=== PATIENT | male | born 2000 | race Asian ===

== ENCOUNTER 2018-09-05 05:43 | Day surgery (SDC) | payer BC ==
[2018-09-04 12:41] VITALS: BMI 21.6
[2018-09-05 11:58] VITALS: TEMP 97.6
[2018-09-05] MEDS ORDERED: ceFAZolin SODIUM 1 GM VIAL ONE (13:08)
[2018-09-05] MEDS ORDERED: DEXAMETHASONE SOD PHOSPHATE 4 MG/1 ML VIAL ONE (13:08)
[2018-09-05] MEDS ORDERED: SODIUM CHLORIDE 0.9% P/F 10 ML VIAL IJ ONE (13:08)
[2018-09-05] MEDS ORDERED: LIDOCAINE HCL/PF 2% SDV 5ML VIAL ONE (13:08)
[2018-09-05] MEDS ORDERED: KETOROLAC TROMETHAMINE 30 MG/1 ML VIAL ONE (13:08)
[2018-09-05] MEDS ORDERED: PROPOFOL 20 ML ONE ×2 (13:10→14:07)
[2018-09-05] MEDS ORDERED: MIDAZOLAM HCL 2 MG/2 ML SINGLE DOSE VIAL ONE (13:10)
[2018-09-05] MEDS ORDERED: ONDANSETRON 4 MG/2 ML VIAL IVPUSH PRN ×2 (13:16→16:13)
[2018-09-05] MEDS ORDERED: LIDOCAINE HCL 1%, 10 MG/ML (20ML VIAL) ONE (13:16)
[2018-09-05] MEDS ORDERED: BUPIVACAINE HCL/PF 0.5% (5MG/ML) 10 ML VIAL ONE (13:16)
[2018-09-05] MEDS ORDERED: oxyCODONE HCL 5 MG TABLET PO PRN ×2 (13:16→16:13)
[2018-09-05] MEDS ORDERED: ceFAZolin SODIUM 1 GM VIAL IVPB ONE (13:28)
[2018-09-05] MEDS ORDERED: LACTATED RINGERS SOLUTION 1,000 ML IV SCH (13:30)
--- NOTE | 2018-09-05 14:07 | OP ---
Operative Note - Note: Operative Date: 09/05/18 Pre-Operative Diagnosis: left wrist mass, likely ganglion cyst Operation: excision left wrist mass Post-Operative Diagnosis: Same as Pre-op Surgeon: Delmar Mobley Anesthesiologist/SOLIDS CONTROL TECHNICIAN: Mannie Dacosta Anesthesia: Local, MAC Specimens Removed: mass.left wrist, ganglion cyst Estimated Blood Loss (mls): 0 Drains, Volume Out (mls): 0 Blood Volume Replaced (mls): 0 Fluid Volume Replaced (mls): 500 Operative Report Dictated: Yes
[2018-09-05] MEDS ORDERED: PROMETHAZINE HCL 25 MG/1 ML VIAL IVPB PRN (16:13)
[2018-09-05 16:50] VITALS: BP 113/73; PULSE 70
--- NOTE | 2018-09-07 00:32 | OP ---
DATE OF OPERATION: 09/05/2018 PREOPERATIVE DIAGNOSIS: Left wrist mass, likely ganglion cyst. POSTOPERATIVE DIAGNOSIS: Left wrist mass, likely ganglion cyst. PROCEDURE: Left wrist dorsal mass excision. SURGEON: Parrish Choudhary MD ASSISTANTS: None. ANESTHESIA: Mannie Dacosta CRNA. LM anesthesia, local injection of 20 mL 0.5% Marcaine and 1% lidocaine mix. DRAINS: None. COMPLICATIONS: None. SPECIMEN: Mass, left wrist, likely ganglion cyst. BLOOD LOSS: None. BLOOD GIVEN: None. This patient is a 18-year-old male with a preoperative diagnosis of a mass on the dorsal aspect of his left wrist. Likely it is a ganglion cyst. After understanding the potential risks, complications, alternatives, and benefits of surgical versus non-surgical treatment, the patient elects to undergo this procedure. He understands he may have temporary or permanent paresthesias. He understands that there is a 1% chance of recurrence even after surgical excision. The patient was brought to the operating room, peripheral IV placed, IV sedation given. One gram of IV Ancef was given. He and the anesthesiologist decided to go with LM anesthesia versus just MAC and local. The left upper extremity was prepped and draped in usual sterile fashion. The entire case was done under 3.0 loupe magnification. A transverse incision was marked out within Wallace lines with a marking pen, and 10 mL of 0.5% Marcaine and 1% lidocaine mix injected in and around the surgical incision. The area was then elevated, exsanguinated with Esmarch bandage, tourniquet inflated to 250 mmHg. A transverse incision was made just through the skin with a number 15 scalpel blade. Subcutaneous hemostasis achieved with the bipolar cautery. Longitudinal dissection was done with Littler scissors. Great care was taken to preserve all crossing neurovascular structures. There was 1 small vein which was sacrificed, and there were 3 crossing small-caliber subcutaneous sensory nerves, which were all preserved. They were dissected free of the mass, which was an obvious ganglion cyst. It was well encapsulated, fluid filled. At one point it popped, and classic ganglion-cyst like fluid was removed. Next, Weitlaner retractors were placed into the wound. Circumferential dissection around this mass was done. I was able to free it from all the surrounding soft tissues, find its roots, decapitate it at its base, and cauterize the base window, preserving a window through the dorsal wrist capsule. It was passed off the field as specimen. The area was copiously irrigated and washed out. The area was explored. I could not see or feel any other abnormal tissue. It was cauterized a bit more, irrigated and washed out again. The closure was done with 4-0 undyed Vicryl in the deep dermal layer. Final skin reapproximation was done with a running subcuticular 4-0 Biosyn stitch. The area was then washed and dried, covered with Steri-Strips, sterile 4 x 4, fluffs between the fingers. It was then wrapped with Webril and Coban. The tourniquet was taken down after a total tourniquet time of about 30 minutes. There were no complications during the case. The patient tolerated the procedure quite well. PARRISH CHOUDHARY M.D. [id number]
--- NOTE | 2018-09-07 15:42 | PATH ---
Surgical Pathology Report Patient Name: JAVIER YING JR [facility]. Rec. #: [id number] /Age/Gender: 2000 (Age: 18) / M Account: [id number] Location: [facility] SURGICAL Taken: 09/05/2018 Received: 09/06/2018 Reported: 09/07/2018 Physicians: Delmar Mobley M.D. Specimen(s) Received LEFT WRIST MASS Clinical History Left wrist mass Final Diagnosis WRIST MASS, LEFT, EXCISION: GANGLION CYST. Electronically Signed Danielle Peralta M.D. Gross Description Received in formalin labeled "mass left wrist," is a 1.8 x 1.1 x 1.0 cm souza-yellow cystic structure containing clear mucinous material. [employer] Application Consultant sections are submitted in one cassette. /09/06/201809/06/2018
== END 2018-09-05 17:02 | disposition home or self-care (01) ==
LOC: JASU-SURG 05:43
PROVIDERS: ATTEND Orthopaedic Surgery
PROC: 0LB60ZZ Excision of Left Lower Arm and Wrist Tendon, Open Approach (ICD-10-PCS; principal; 2018-09-05 12:30)
DX: M67.432 Ganglion, left wrist (principal)
CPT/HCPCS: 88304-TC; 94760